=== PATIENT | female | born 1990 | race Caucasian/White ===

== ENCOUNTER 2025-06-12 03:42 | Emergency (ER) | payer OTHER, SELFPAY ==
[2025-06-12 03:50] VITALS: BP 149/90; PULSE 78; TEMP 36.5; O2SAT 100; BMI 41.3
--- OUTSIDE RECORDS SUMMARY | 2025-06-12 04:02 | XMS_ITS | Patient Health Record ---
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 Encounters Encounter Location Date Provider Diagnosis [facility] [address] [place] [address] 08/31/2024 Rubia Villela [facility] [address] [place] [address] 09/21/2024 Rubia Villela Anxiety as acute reaction to gross stress F41.1 [facility] [address] [place] [address] 10/13/2024 Rubia Villela Anxiety as acute reaction to gross stress F41.1 [facility] [address] [place] [address] 04/24/2025 Rubia Villela Anxiety as acute reaction to gross stress F41.1 [facility] [address] [place] [address] 05/29/2025 Rubia Villela Anxiety as acute reaction to gross stress F41.1 [facility] [address] [place] [place] [place] [address] 06/20/2024 Rubia Villela Anxiety as acute reaction to gross stress F41.1 [facility] [address] [place] [address] 07/04/2024 Rubia Villela Anxiety as acute reaction to gross stress F41.1 [facility] [address] [place] [address] 08/29/2024 Rubia Villela Anxiety as acute reaction to gross stress F41.1 [facility] [address] [place] [address] 03/20/2025 Rubia Villela Anxiety as acute reaction to gross stress F41.1 Assessments Encounter Date Diagnosis (ICD Code) Assessment Notes Treatment Notes Treatment Clinical Notes Section Notes 06/20/2024 Anxiety as acute reaction to gross stress (ICD-10 - F41.1) 08/29/2024 Anxiety as acute reaction to gross stress (ICD-10 - F41.1) 10/13/2024 Anxiety as acute reaction to gross stress (ICD-10 - F41.1) 04/24/2025 Anxiety as acute reaction to gross stress (ICD-10 - F41.1) 09/21/2024 Anxiety as acute reaction to gross stress (ICD-10 - F41.1) 07/04/2024 Anxiety as acute reaction to gross stress (ICD-10 - F41.1) 05/29/2025 Anxiety as acute reaction to gross stress (ICD-10 - F41.1) 03/20/2025 Anxiety as acute reaction to gross stress (ICD-10 - F41.1) Plan Of Treatment Next Appt Details Provider Name:Rubia hart, 06/28/2025 10:00:00 AM, [address] [place], [address], Insurance Providers Payer Name Payer Address Payer Phone Subscriber Number Group Number Insured Name Patient Relationship to Insured Coverage Start Date Coverage End Date [employer] P[employer] [address] [place] [phone] [id number] [employer] Self - patient is the insured
[2025-06-12 04:07] LABS: Glucose Urine UA NEGATIVE (NEGATIVE)
--- NOTE | 2025-06-12 04:08 | ED_ITS ---
HPI - Female Genitourinary General Chief complaint: Urogenital-Female Stated complaint: LOWER ABDOMINAL PAIN Time Seen by Provider: 06/12/25 03:56 Source: patient Mode of arrival: walk-in History of Present Illness HPI Narrative: cc - urinary symptoms Pt complains of suprapubic discomfort, increased urinary frequency, urgency and burning with urination. She saw blood in her urine. This all started about an hour ago when the suprapubic pain woke her from sleep. Related Data Home Medications �Medication �Instructions �Recorded �Confirmed fluoxetine 40 mg capsule mg 06/12/25 metoprolol succinate 100 mg mg PO 06/12/25 tablet,extended release 24 hr Previous Rx's �Medication �Instructions �Recorded cephalexin 500 mg capsule 500 mg PO BID 7 days #14 cap s 06/12/25 phenazopyridine 100 mg tablet 100 mg PO Q8H PRN dysuri a 6 doses 06/12/25 (Pyridium) #20 tabs Allergies Allergy/AdvReac Type Severity Reaction Status Date / Time No Known Drug Allergies Allergy Verified 06/12/25 03:57 PFSH PFSH Social History Little interest or pleasure in doing things: not at all Feeling down, depressed, or hopeless: not at all Exam Narrative Exam Narrative: Nurses notes and vital signs reviewed and patient is not hypoxic. afebrile General: Well-appearing and in no apparent distress. Skin: Warm, dry, no pallor noted. Cardiovascular: Regular Rate and Rhythm without murmur, gallop or rub. Respiratory: No accessory muscle use or respiratory distress. Lungs are clear to auscultation, no wheezing, rales or rhonchi Back: No CVA tenderness Musculoskeletal: normal ROM GI: Abdomen is soft, non-distended. Normal bowel sounds. No masses ap preciated. Mild suprapubic tenderness to palpation. No rebound, guarding, or rigidity noted. Neurological: A&O x4. No cranial nerve dysfunction observed. No truncal ataxia. Moves all extremities. Sensation intact. Psychiatric: Cooperative and interactive. Normal mood and affect. Adult Constitutional Vital Signs, click to edit/add: Last Vital Signs Temp 97.7 F 06/12/25 03:50 Pulse 78 06/12/25 03:50 Resp 16 06/12/25 03:50 BP 149/90 H 06/12/25 03:50 Pulse Ox 100 06/12/25 03:50 O2 Del Method Room Air 06/12/25 03:50 Course Vital Signs Vital signs: Vital Signs Temperature 97.7 F 06/12/25 03:50 Pulse Rate 78 06/12/25 03:50 Respiratory Rate 16 06/12/25 03:50 Blood Pressure 149/90 H 06/12/25 03:50 Pulse Oximetry 100 06/12/25 03:50 Oxygen Delivery Method Room Air 06/12/25 03:50 Temperature 97.7 F 06/12/25 03:50 Pulse Rate 78 06/12/25 03:50 Respiratory Rate 16 06/12/25 03:50 Blood Pressure 149/90 H 06/12/25 03:50 Pulse Oximetry 100 06/12/25 03:50 Oxygen Delivery Method Room Air 06/12/25 03:50 MDM - Female Genitourinary MDM Narrative Medical decision making narrative: Urine obtained and sent for testing -both urinalysis and . The patient was given Pyridium while we waited the results -she does not believe that she is -last menstrual period was about 2 weeks ago. Urinalysis revealed acute urinary tract infection of the patient was given a dose of Keflex before being discharged with a prescription for additional Pyridium and Keflex. Lab Data Attestation: I reviewed the patient's lab results. Labs: Lab Results 06/12/25 Range/Units 03:55 Urine Color Lt. yellow (YELLOW) Urine Clarity Cloudy A (CLEAR) Urine pH 6.0 (5.0-9.0) Ur Specific Mckenna 1.025 (1.005-1.025) Urine Protein 30 A (NEG/TRACE) mg/dL Urine Glucose (UA) Negative (NEGATIVE) mg/dL Urine Ketones Negative (NEGATIVE) mg/dL Urine Occult Blood Large A (NEGATIVE) Urine Nitrite Negative (NEGATIVE) Urine Bilirubin Negative (NEGATIVE) Urine Urobilinogen 0.2 (0.2-1.0) EU/dL Ur Leukocyte Esterase Moderate A (NEGATIVE) Urine RBC >100 A (0-2) #/HPF Urine WBC 5-10 A (NONE SEEN) #/HPF Ur Squamous Epith Cells Rare (NONE/RARE) #/LPF Urine Crystals None seen (None Seen) #/HPF Urine Bacteria Moderate A (NONE SEEN) #/HPF Urine Casts None seen (NONE SEEN) #/LPF Urine Mucus None seen (NONE SEEN) Ur Culture Indicated? [place] [place] HCG, Qual Negative (NEGATIVE) Discharge Plan Discharge Chief Complaint: Urogenital-Female Clinical Impression: Urinary tract infection, Dysuria Patient Disposition: Home, Self-Care Time of Disposition Decision: 04:31 Prescriptions / Home Meds: New phenazopyridine [Pyridium] 100 mg tablet 100 mg PO Q8H PRN (Reason: dysuria) Qty: 20 0RF cephalexin 500 mg capsule 500 mg PO BID 7 Days Qty: 14 0RF No Action fluoxetine 40 mg capsule metoprolol succinate 100 mg tablet extended release 24 hr PO Print Language: Yi Instructions: Urinary Tract Infection in Women (ED) Referrals: RENÉE RENTERIA [Primary Care Provider, Family Practice] - 1 week
[2025-06-12 04:13] LABS: HCG Qualitative Urine* NEGATIVE (NEGATIVE)
[2025-06-12 04:17] LABS: Cast Seen? NONE SEEN #/LPF (NONE SEEN); Crystals Seen? None Seen #/HPF (None Seen); Urine Culture Indicated YES-FRMC
[2025-06-12] MEDS: PHENAZOPYRIDINE 100 MG TABLET PO (04:32)
[2025-06-12] MEDS: CEPHALEXIN 500 MG CAPSULE PO (04:40)
== END 2025-06-12 04:51 | disposition home or self-care (01) ==
PROVIDERS: Emergency Provider Emergency Medicine; PCP Physician Assistant
DX: N39.0 Urinary tract infection, site not specified (principal); R30.0 Dysuria
CPT/HCPCS: 81001; 84703; 87086; 87088; 87186; 99283